=== PATIENT | female | born 1965 | race Caucasian/White ===

== ENCOUNTER → 2018-07-27 12:38 | Outpatient (POV) | payer MEDICARE, SELFPAY ==
[2018-07-27 13:02] VITALS: BP 159/87; PULSE 67; RESP 18; O2SAT 98
--- NOTE | 2018-07-27 15:00 | HMH.PMCON ---
Assessment and Plan (1) Post laminectomy syndrome Current visit: Yes Status: Acute Category: Medical Code(s): M96.1 - Postlaminectomy syndrome, not elsewhere classified (2) Degenerative joint disease (DJD) of lumbar spine Current visit: Yes Status: Acute Category: Medical Code(s): M47.816 - Spondylosis without myelopathy or radiculopathy, lumbar region (3) Lumbar radiculopathy Current visit: Yes Status: Acute Category: Medical Code(s): M54.16 - Radiculopathy, lumbar region - Assessment and plan all Dx Assessment and Plan for all problems:: Patient and I had a long discussion in regards to us taking over her pump. Discussed realistic expectations. She is currently on diazepam from a psychiatrist we discussed the risks of taking this with an intrathecal pain pump. She understands. We will start slowly increasing her and 25% increments to see if this is beneficial. I do believe she may also benefit from a flexed dose in the future. We will be removing her clonidine at her next intrathecal pain pump refill. Patient has been instructed to call the office if she has any issues. Dr. Lomeli has reviewed this note and agrees with this plan of care. This note was dictated using voice recognition software and may contain errors or omissions HPI - Data of Consult Consult date: 07/27/18 Requesting Physician: Vania Costa APRN Primary Care Provider: DARIANA Kearney - Consult Narrative Reason for consult: Back pain History of present illness: Ms. Gusman is a 52 year old female who presents today for consultation in regards to her low back pain. Patient has numbness and tingling in her left leg. Patient is interested in having our office take over her intrathecal therapy. She is been seen by Dr. Gillespie at [facility]. Patient had a Prialt pump which she developed side effects to. Patient's been switched to Dilaudid/clonidine. Patient has minimal relief with her current dose of 0.16 mg/day she rates her pain today 4 out of 10 when she is standing. Most of her pain is in her bilateral feet. Patient has had injections in the past however none since her interthecal placement. Patient has had her pump since 2017 she states all activity increases her pain while rest decreases her pain. CC: Vania Costa APRN [facility] History I have reviewed the patient's past medical history: Yes Medical History: Reports:: Hyperlipidemia, Palpitations Denies:: Diabetes Mellitus Type 1, Diabetes Mellitus Type 2 Other Medical History: Reports: Thyroid Disease (HYPOTHYROIDISM) Amputation: No Fractures: No - *Social History Smoking Status: Never smoker Alcohol Intake: never *Occupational Status:: other Housing: house Household Members: spouse *Travel in the last 8 weeks: None - Psychiatric History Expresses thoughts of harming self/others: None Suicide Plan Description: No Plan Family Hx:: Unable to obtain Review of Systems - Review of Systems ROS General: no recent weight change, no fever, no sleep disturbances Respiratory: no cough, no shortness of air, no recurring pulmonary infections Cardiovascular/Peripheral Vascular: No chest pain, No palpitations, no edema, no shortness of breath. Gastrointestinal: no incontinence, normal bowel movements reported Genitourinary: no incontinence Musculoskeletal: Back pain, leg pain Psychiatric: normal mood/ affect Neurological: [denies weakness in extremities], [denies balance issues] Objective Vital signs: Pulse Resp BP Pulse Ox 67 18 159/87 H 98 07/27/18 13:02 07/27/18 13:02 07/27/18 13:02 07/27/18 13:02 Narrative: Physical Exam General: Alert and oriented x3, no acute distress, pleasant and cooperative, [on room air] Lungs: Resps E/U, Symmetrical chest expansion, Eyes: PERRL Musculoskeletal: Flexion and extension of lumbar spine somewhat guarded secondary to pain, deep tendon reflexes normal, strength
--- NOTE | 2018-07-28 08:51 | P.CONS_ITS ---
Assessment and Plan (1) Post laminectomy syndrome Current visit: Yes Status: Acute Category: Medical Code(s): M96.1 - Postlaminectomy syndrome, not elsewhere classified (2) Degenerative joint disease (DJD) of lumbar spine Current visit: Yes Status: Acute Category: Medical Code(s): M47.816 - Spondylosis without myelopathy or radiculopathy, lumbar region (3) Lumbar radiculopathy Current visit: Yes Status: Acute Category: Medical Code(s): M54.16 - Radiculopathy, lumbar region - Assessment and plan all Dx Assessment and Plan for all problems:: Patient and I had a long discussion in regards to us taking over her pump. Discussed realistic expectations. She is currently on diazepam from a psychiatrist we discussed the risks of taking this with an intrathecal pain pump. She understands. We will start slowly increasing her and 25% increments to see if this is beneficial. I do believe she may also benefit from a flexed dose in the future. We will be removing her clonidine at her next intrathecal pain pump refill. Patient has been instructed to call the office if she has any issues. Dr. Lomeli has reviewed this note and agrees with this plan of care. This note was dictated using voice recognition software and may contain errors or omissions HPI - Data of Consult Consult date: 07/27/18 Requesting Physician: Vania Costa APRN Primary Care Provider: DARIANA Kearney - Consult Narrative Reason for consult: Back pain History of present illness: Ms. Gusman is a 52 year old female who presents today for consultation in regards to her low back pain. Patient has numbness and tingling in her left leg. Patient is interested in having our office take over her intrathecal therapy. She is been seen by Dr. Gillespie at [facility]. Patient had a Prialt pump which she developed side effects to. Patient's been switched to Dilaudid/clonidine. Patient has minimal relief with her current dose of 0.16 mg/day she rates her pain today 4 out of 10 when she is standing. Most of her pain is in her bilateral feet. Patient has had injections in the past however none since her interthecal placement. Patient has had her pump since 2017 she states all activity increases her pain while rest decreases her pain. CC: Vania Costa APRN [facility] History I have reviewed the patient's past medical history: Yes Medical History: Reports:: Hyperlipidemia, Palpitations Denies:: Diabetes Mellitus Type 1, Diabetes Mellitus Type 2 Other Medical History: Reports: Thyroid Disease (HYPOTHYROIDISM) Amputation: No Fractures: No - *Social History Smoking Status: Never smoker Alcohol Intake: never *Occupational Status:: other Housing: house Household Members: spouse *Travel in the last 8 weeks: None - Psychiatric History Expresses thoughts of harming self/others: None Suicide Plan Description: No Plan Family Hx:: Unable to obtain Review of Systems - Review of Systems ROS General: no recent weight change, no fever, no sleep disturbances Respiratory: no cough, no shortness of air, no recurring pulmonary infections Cardiovascular/Peripheral Vascular: No chest pain, No palpitations, no edema, no shortness of breath. Gastrointestinal: no incontinence, normal bowel movements reported Genitourinary: no incontinence Musculoskeletal: Back pain, leg pain Psychiatric: normal mood/ affect Neurological: [denies weakness in extremities], [denies balance issues] Objective Vital signs:
== END ==
PROVIDERS: PCP Physician Assistant; Visit Provider Clinical Nurse Specialist Family Health
DX: M96.1 Postlaminectomy syndrome, not elsewhere classified (principal); M47.816 Spondylosis without myelopathy or radiculopathy, lumbar region; M54.16 Radiculopathy, lumbar region
CPT/HCPCS: 99202

== ENCOUNTER → 2018-08-10 14:53 | Outpatient (POV) | payer MEDICARE, SELFPAY ==
--- NOTE | 2018-08-11 08:44 | P.PCN_ITS ---
- Procedure Date: 08/10/18 Time: 15:00 Anesthesiologist:: Vania Costa APRN Complications:: None Pre-procedure Diagnosis:: Degenerative disc disease lumbar spine with lumbar radiculopathy and postlaminectomy syndrome Post-procedure Diagnosis:: Same Indications for Procedure:: Patient is a pleasant 52-year-old white female who presents today for intrathecal pain pump adjustment. Patient is currently on a Dilaudid/clonidine dose of 0.21 mg a day. At her last visit she was increased 25% did well with this she denies any side effects or medication at this time. We will increase her today and reinstate her PTC dosing. Patient states most of her pain is in her back and bilateral legs. She rates her pain today a 5 out of 10. Patient is also continuing with CBD oil. Physical Exam General: Alert and oriented x3, no acute distress, pleasant and cooperative, [on room air] Lungs: Resps E/U, Symmetrical chest expansion, Eyes: PERRL Musculoskeletal: Flexion and extension of lumbar spine somewhat guarded secondary to pain, deep tendon reflexes normal, strength in upper and lower extremities [5/5], slightly antalgic gait noted Neurological: speech clear, arts and crafts instructor equal, no gross sensory deficits Procedure Details:: Informed consent was obtained and the risk and benefits of the procedure were explained to the patient. The patient was taken to the procedure room where noninvasive monitoring was placed including noninvasive blood pressure cuff and pulse oximeter. Patient's pump was interrogated and reprogrammed. The infusion rate was increased to 0.25 mg a day of Dilaudid and 50 mcg of clonidine. Her PTC was set up at 0.02 mg per activation with a lockout of 3 hours and up to 3 activations a day. The patient tolerated the procedure well. Plan and Disposition:: We will see the patient back at her next intrathecal pain pump refill and reprogram. We will fill her with Dilaudid 3 mg/mL we will take her clonidine out at this time. We will continue to make adjustments until she is optimally controlled with the intrathecal pain pump. Dr. Lomeli has reviewed this note and agrees with this plan of care. This note was dictated using voice recognition software and may contain errors or omissions
== END ==
PROVIDERS: PCP Physician Assistant; Visit Provider Clinical Nurse Specialist Family Health
DX: M51.16 Intervertebral disc disorders with radiculopathy, lumbar region (principal); M96.1 Postlaminectomy syndrome, not elsewhere classified
CPT/HCPCS: 62368

== ENCOUNTER → 2018-09-21 14:21 | Outpatient (POV) | payer MEDICARE, SELFPAY ==
--- NOTE | 2018-09-21 14:26 | XR_ITS ---
XR ankle wt bearing LT min 3V HISTORY: ITS.REASON: pain ORDERING PHYSICIAN: Vania Costa PATIENT AGE: 52 years Comparison: None FINDINGS: No fracture or dislocation. No lytic or blastic change. There is normal mineralization.. The joint spaces are well-preserved. No significant degenerative/arthritic changes. No erosive changes evident. The ankle mortise is well preserved . The talar dome has an unremarkable appearance. IMPRESSION: Negative ankle, no acute finding
--- NOTE | 2018-09-21 14:26 | XR_ITS ---
XR ankle wt bearing RT min 3V HISTORY: ITS.REASON: pain ORDERING PHYSICIAN: Vania Costa PATIENT AGE: 52 years Comparison: None FINDINGS: No fracture or dislocation. No lytic or blastic change. There is normal mineralization.. The joint spaces are well-preserved. No significant degenerative/arthritic changes. No erosive changes evident. The ankle mortise is well preserved . The talar dome has an unremarkable appearance. IMPRESSION: Negative ankle, no acute finding
--- NOTE | 2018-09-21 14:26 | XR_ITS ---
XR foot wt bearing RT 3V HISTORY: Right foot pain ITS.REASON: Pain ORDERING PHYSICIAN: Vania Costa PATIENT AGE: 52 years COMPARISON: There is a tear FINDINGS: No fracture or dislocation. No lytic or blastic change. There is normal mineralization.. The joint spaces are well-preserved. No significant degenerative/arthritic changes. No erosive changes evident. There are mild hypertrophic changes along the distal aspect of the talus dorsally. There is normal alignment. IMPRESSION: No acute finding. Mild hypertrophic changes along the dorsal aspect of the talus distally
--- NOTE | 2018-09-21 14:26 | XR_ITS ---
XR foot wt bearing LT 3V HISTORY: ITS.REASON: Pain ORDERING PHYSICIAN: Vania Costa PATIENT AGE: 52 years COMPARISON: None FINDINGS: No fracture or dislocation. No lytic or blastic change. There is normal mineralization.. The joint spaces are well-preserved. No significant degenerative/arthritic changes. No erosive changes evident. IMPRESSION: Negative, no acute finding
[2018-09-21 15:38] VITALS: BP 144/91; PULSE 81; RESP 18; O2SAT 99; BMI 33.3
--- NOTE | 2018-09-21 15:57 | P.PCN_ITS ---
- Procedure Date: 09/21/18 Time: 15:38 Anesthesiologist:: Vania Costa APRN Complications:: None Pre-procedure Diagnosis:: Degenerative disc disease lumbar spine with lumbar radiculopathy and postlaminectomy syndrome Post-procedure Diagnosis:: Same Indications for Procedure:: Patient is a pleasant 52-year-old white female who presents today for intrathecal pain pump reprogram. Patient is currently on a 0.27 dose of Dilaudid. She denies any side effects. Patient has been doing well. She is been seen by Dr. Kwon and given injections for neuroma. She has not nerve conduction study coming up. She rates her pain a 4 out of 10. Physical Exam General: Alert and oriented x3, no acute distress, pleasant and cooperative, [on room air] Lungs: Resps E/U, Symmetrical chest expansion, Eyes: PERRL Musculoskeletal: Flexion and extension of lumbar spine somewhat guarded secondary to pain, deep tendon reflexes normal, strength in upper and lower extremities [5/5], [abnormal gait noted] Neurological: speech clear, service order expediter equal, no gross sensory deficits Procedure Details:: Informed consent was obtained and the risk and benefits of the procedure were explained to the patient. The patient was taken to the procedure room where noninvasive monitoring was placed including noninvasive blood pressure cuff and pulse oximeter. Patient's pump was interrogated and reprogrammed. The infusion rate was increased to 0.4 mg a day of Dilaudid. The patient tolerated the procedure well. Plan and Disposition:: We will see the patient back in 8 weeks reassess her symptoms at that time. She is been instructed to call the office if she has any issues prior to her next appointment. Dr. Lomeli has reviewed this note and agrees with this plan of care. This note was dictated using voice recognition software and may contain errors or omissions
== END ==
PROVIDERS: Visit Provider Clinical Nurse Specialist Family Health
DX: M79.672 Pain in left foot (principal); M79.671 Pain in right foot; M25.572 Pain in left ankle and joints of left foot; M25.571 Pain in right ankle and joints of right foot
CPT/HCPCS: 62368; 73610; 73630

== ENCOUNTER → 2018-10-20 12:55 | Outpatient (POV) | payer MEDICARE, SELFPAY ==
[2018-10-20 13:20] VITALS: BP 131/87; PULSE 70; RESP 18; O2SAT 96; BMI 33.3
--- NOTE | 2018-10-20 13:58 | HMH.PMPROC ---
- Procedure Date: 10/20/18 Time: 13:58 Anesthesiologist:: Vania Costa APRN Complications:: None Pre-procedure Diagnosis:: Degenerative disc disease lumbar spine with lumbar radiculopathy and postlaminectomy syndrome Post-procedure Diagnosis:: Same Indications for Procedure:: She is a pleasant 52-year-old white female who presents today for intrathecal pain pump reprogram. She is currently on a dose of 0.4 mg of Dilaudid she denies any side effects. She is overall doing well however she has some increased pain she rates her pain a 6 out of 10. She is having more burning than usual and her groin. Physical Exam General: Alert and oriented x3, no acute distress, pleasant and cooperative, [on room air] Lungs: Resps E/U, Symmetrical chest expansion, Eyes: PERRL Musculoskeletal: Flexion and extension of lumbar spine somewhat guarded secondary to pain, deep tendon reflexes normal, strength in upper and lower extremities [5/5], slightly antalgic gait noted Neurological: speech clear, chief passenger ship steward/stewardess equal, no gross sensory deficits Procedure Details:: Informed consent was obtained and the risk and benefits of the procedure were explained to the patient. The patient was taken to the procedure room where noninvasive monitoring was placed including noninvasive blood pressure cuff and pulse oximeter. Patient's pump was interrogated and reprogrammed. The infusion rate was increased to .6 mg of dilaudid a day. The patient tolerated the procedure well. Plan and Disposition:: I will see the patient back in three weeks to reassess her. Patient is been instructed to call the office if she has any issues prior to her next appointment. She will also be getting a nerve conduction study done we may add bupivacaine to her intrathecal infusion. Dr. Lomeli has reviewed this note and agrees with this plan of care. This note was dictated using voice recognition software and may contain errors or omissions
--- NOTE | 2018-10-20 14:04 | P.PCN_ITS ---
- Procedure Date: 10/20/18 Time: 13:58 Anesthesiologist:: Vania Costa APRN Complications:: None Pre-procedure Diagnosis:: Degenerative disc disease lumbar spine with lumbar radiculopathy and postlaminectomy syndrome Post-procedure Diagnosis:: Same Indications for Procedure:: She is a pleasant 52-year-old white female who presents today for intrathecal pain pump reprogram. She is currently on a dose of 0.4 mg of Dilaudid she denies any side effects. She is overall doing well however she has some increased pain she rates her pain a 6 out of 10. She is having more burning gena n usual and her groin. Physical Exam General: Alert and oriented x3, no acute distress, pleasant and cooperative, [on room air] Lungs: Resps E/U, Symmetrical chest expansion, Eyes: PERRL Musculoskeletal: Flexion and extension of lumbar spine somewhat guarded secondary to pain, deep tendon reflexes normal, strength in upper and lower extremities [5/5], slightly antalgic gait noted Neurological: speech clear, screening technician equal, no gross sensory deficits Procedure Details:: Informed consent was obtained and the risk and benefits of the procedure were explained to the patient. The patient was taken to the procedure room where noninvasive monitoring was placed including noninvasive blood pressure cuff and pulse oximeter. Patient's pump was interrogated and reprogrammed. The infusion rate was increased to .6 mg of dilaudid a day. The patient tolerated the procedure well. Plan and Disposition:: I will see the patient back in three weeks to reassess her. Patient is been instructed to call the office if she has any issues prior to her next appointment. She will also be getting a nerve conduction study done we may add bupivacaine to her intrathecal infusion. Dr. Lomeli has reviewed this note and agrees with this plan of care. This note was dictated using voice recognition software and may contain errors or omissions
== END ==
PROVIDERS: Visit Provider Clinical Nurse Specialist Family Health
DX: M51.16 Intervertebral disc disorders with radiculopathy, lumbar region (principal); M96.1 Postlaminectomy syndrome, not elsewhere classified
CPT/HCPCS: 62368

== ENCOUNTER → 2018-11-09 12:47 | Outpatient (POV) | payer MEDICARE, SELFPAY | PROVIDERS: Visit Provider Specialist | DX: R20.2 Paresthesia of skin (principal) | CPT/HCPCS: 95886; 95908 ==

== ENCOUNTER → 2018-11-09 14:59 | Outpatient (POV) | payer MEDICARE, SELFPAY ==
[2018-11-09 15:13] VITALS: BP 137/98; PULSE 75; RESP 18; O2SAT 98; BMI 34.1
--- NOTE | 2018-11-09 15:31 | HMH.PMPROC ---
- Procedure Date: 11/09/18 Time: 15:31 Anesthesiologist:: Vania Costa APRN Complications:: None Pre-procedure Diagnosis:: Degenerative disc disease lumbar spine with lumbar radiculopathy and postlaminectomy syndrome Post-procedure Diagnosis:: Same Indications for Procedure:: Patient is a pleasant 53-year-old white female who presents today for intrathecal pain pump reprogram. She is currently on intrathecal Dilaudid dose of 0.6 mg she denies side effects she is doing better she states her baseline pain is 4 out of 10 and she does not have extreme highs. Overall patient did well with her increased last time. She is a little sore today rating her pain a 6 out of 10 due to her recently having a nerve conduction study test. Nerve conduction study test came back appropriate. Patient is also been following up with podiatry. Physical Exam General: Alert and oriented x3, no acute distress, pleasant and cooperative, [on room air] Lungs: Resps E/U, Symmetrical chest expansion, Eyes: PERRL Musculoskeletal: Flexion and extension of lumbar spine somewhat guarded secondary to pain, deep tendon reflexes normal, strength in upper and lower extremities [5/5], antalgic gait noted Neurological: speech clear, manager field investigations equal, no gross sensory deficits Procedure Details:: Informed consent was obtained and the risk and benefits of the procedure were explained to the patient. The patient was taken to the procedure room where noninvasive monitoring was placed including noninvasive blood pressure cuff and pulse oximeter. Patient's pump was interrogated and reprogrammed. The infusion rate was increased to 0.87 mg a day of Dilaudid. The patient tolerated the procedure well. Plan and Disposition:: I will follow-up with the patient at her next intrathecal pain pump refill and reprogram we will change her Dilaudid to 5 mg/mL and bupivacaine 1 mg/mL. He has been instructed to call the office if she has any issues prior to her next appointment. Dr. Lomeli has reviewed this note and agrees with this plan of care. This note was dictated using voice recognition software and may contain errors or omissions
== END ==
PROVIDERS: PCP Physician Assistant; Visit Provider Clinical Nurse Specialist Family Health
DX: M51.16 Intervertebral disc disorders with radiculopathy, lumbar region (principal); M96.1 Postlaminectomy syndrome, not elsewhere classified
CPT/HCPCS: 62368; 95886; 95908

== ENCOUNTER → 2018-12-07 14:01 | Outpatient (POV) | payer MEDICARE, SELFPAY ==
--- NOTE | 2018-12-07 14:13 | HMH.PMPROC ---
- Procedure Date: 12/07/18 Time: 14:14 Anesthesiologist:: Oriana Parmar APRN Complications:: None Pre-procedure Diagnosis:: Degenerative disc disease lumbar spine with lumbar radiculopathy, postlaminectomy syndrome Post-procedure Diagnosis:: Same Indications for Procedure:: Patient is a pleasant 53-year-old white female who presents today for intrathecal pain pump adjustment. The patient reports that her PTC control has not been working recently, increasing her pain. She was recently seen by [employer] sales representative who did check her PTC control. She says that it worked for a short time and is now messed up again. She rates her pain a 5 out of 10 today. She also recently had bupivacaine added to her intrathecal pain pump medication and reports that she has had no side effects from this. She does complain of tingling to her bilateral legs and feet. Physical exam General: Alert and oriented x3, no acute distress, pleasant and cooperative, [on room air] Lungs: Respirations even and unlabored, symmetrical chest expansion Eyes: PERRL Musculoskeletal: Flexion and extension of lumbar spine somewhat guarded secondary to pain, deep tendon reflexes normal, strength in upper and lower extremities [5/5], [abnormal gait noted] Neurological: Speech clear, lead material handler equal, no gross sensory deficit Procedure Details:: Informed consent was obtained and the risk and benefits of the procedure were explained to the patient. Patient was taken to the procedure room where noninvasive monitoring was placed including noninvasive blood pressure cuff and pulse oximeter. Patient's pump was interrogated and was reprogrammed to [1.25 mg per day of Dilaudid]. The patient's PTC was also increased to 0.125 mg. the patient tolerated the procedure well with no complications. The patient will see the [employer] sales representative today to assess her PTC control. Plan and Disposition:: We will see the patient back call the office if she has any concerns prior to her next appointment. Dr. Lomeli has reviewed this note and agrees with this plan of care. This note was dictated using voice recognition software and make contain errors or omissions.
--- NOTE | 2018-12-07 14:24 | P.PCN_ITS ---
- Procedure Date: 12/07/18 Time: 14:14 Anesthesiologist:: Oriana Parmar APRN Complications:: None Pre-procedure Diagnosis:: Degenerative disc disease lumbar spine with lumbar radiculopathy, postlaminectomy syndrome Post-procedure Diagnosis:: Same Indications for Procedure:: Patient is a pleasant 53-year-old white female who presents today for intrathecal pain pump adjustment. The patient reports that her PTC control has not been working recently, increasing her pain. She was recently seen by [employer] medical device sales representative who did check her PTC control. She says that it worked for a short time and is now messed up again. She rates her pain a 5 out of 10 today. She also recently had bupivacaine added to her intrathecal pain pump medication and reports that she has had no side effects from this. She does complain of tingling to her bilateral legs and feet. Physical exam General: Alert and oriented x3, no acute distress, pleasant and cooperative, [on room air] Lungs: Respirations even and unlabored, symmetrical chest expansion Eyes: PERRL Musculoskeletal: Flexion and extension of lumbar spine somewhat guarded secondary to pain, deep tendon reflexes normal, strength in upper and lower extremities [5/5], [abnormal gait noted] Neurological: Speech clear, in store marketing representative equal, no gross sensory deficit Procedure Details:: Informed consent was obtained and the risk and benefits of the procedure were explained to the patient. Patient was taken to the procedure room where noninvasive monitoring was placed including noninvasive blood pressure cuff and pulse oximeter. Patient's pump was interrogated and was reprogrammed to [1.25 mg per day of Dilaudid]. The patient's PTC was also increased to 0.125 mg. the patient tolerated the procedure well with no complications. The patient will see the [employer] medical device sales representative today to assess her PTC control. Plan and Disposition:: We will see the patient back call the office if she has any concerns prior to her next appointment. Dr. Lomeli has reviewed this note and agrees with this plan of care. This note was dictated using voice recognition software and make contain errors or omissions.
[2018-12-07 14:28] VITALS: BP 158/88; PULSE 74; RESP 18; O2SAT 97; BMI 34.9
== END ==
PROVIDERS: Visit Provider Clinical Nurse Specialist Family Health
DX: M51.16 Intervertebral disc disorders with radiculopathy, lumbar region (principal); M96.1 Postlaminectomy syndrome, not elsewhere classified
CPT/HCPCS: 62368

== ENCOUNTER → 2019-01-12 14:34 | Outpatient (CLI) | payer MEDICARE, SELFPAY ==
[2019-01-12 17:03] LABS: Amphetamine/Metha Screen,Urine Negative ng/mL (<1000); Barbiturates Screen,Urine Negative ng/mL (<200); Benzodiazepines Screen,Urine Positive ng/mL (<200); Cannabinoid Screen,Urine Negative ng/mL (<50); Cocaine Screen,Urine Negative ng/mL (<300); Methadone Screen,Urine Negative ng/mL (<300); Opiate Screen,Urine Negative ng/mL (<300); Phencyclidine Screen,Urine Negative ng/mL (<25)
[2019-01-18 10:34] LABS: Opiates Negative (Cutoff=100)
== END ==
PROVIDERS: Visit Provider Anesthesiology
DX: Z79.899 Other long term (current) drug therapy (principal)
CPT/HCPCS: 80305; 80361; 80365; G0480

== ENCOUNTER → 2019-05-17 13:37 | Outpatient (POV) | payer MEDICARE, SELFPAY ==
[2019-05-17 13:59] VITALS: BP 125/80; PULSE 83; RESP 18; O2SAT 99; BMI 36.6
--- NOTE | 2019-05-18 08:44 | P.PCN_ITS ---
- Procedure Date: 05/17/19 Time: 13:20 Anesthesiologist:: Vania Costa APRN Complications:: None Pre-procedure Diagnosis:: Degenerative disc disease lumbar spine with lumbar radiculopathy postlaminectomy syndrome lumbar spine Post-procedure Diagnosis:: Same Indications for Procedure:: Patient is a very pleasant 53-year-old white female who presents today for intrathecal pain pump reprogram. Patient was doing well until about 2 weeks ago she started having increased pain. Patient is in obvious discomfort today. She rates her pain today a 10 out of 10 mostly burning in her feet. Patient's been getting bupivacaine added to her pump which has been helpful for her in the past. Hill reviewed and appropriate. Patient did have a back spasm in which she went to [facility] emergency room she had a CT scan along with a short-term supply of Percocet. Those symptoms had resolved. Patient was given a one-time bolus of 0.5 mg of Dilaudid states she felt much better her pain score came down to a 6. We will increase her today. She denies side effects to her medications. Physical Exam General: Alert and oriented x3, no acute distress, pleasant and cooperative, [on room air] Lungs: Resps E/U, Symmetrical chest expansion, Eyes: PERRL Musculoskeletal: Flexion and extension of lumbar spine somewhat guarded secondary to pain, deep tendon reflexes normal, strength in upper and lower extremities [5/5], [abnormal gait noted] Neurological: speech clear, rubbish collection supervisor equal, no gross sensory deficits Procedure Details:: Informed consent was obtained and the risk and benefits of the procedure were explained to the patient. The patient was taken to the procedure room where noninvasive monitoring was placed including noninvasive blood pressure cuff and pulse oximeter. Patient's pump was interrogated and reprogrammed. The infusion rate was increased to 2 mg/day and her PTC increased to 0.2 mg per activation. The patient tolerated the procedure well. Plan and Disposition:: I will see the patient back at her next intrathecal pain pump refill and reprogram we will increase her bupivacaine at that time she is been instructed to call the office if she has any issues prior to her next appointment. Dr. Lomeli has reviewed this note and agrees with this plan of care. This note was dictated using voice recognition software and may contain errors or omissions
== END ==
PROVIDERS: PCP Internal Medicine Medical Oncology; Visit Provider Clinical Nurse Specialist Family Health
DX: M51.16 Intervertebral disc disorders with radiculopathy, lumbar region (principal); M96.1 Postlaminectomy syndrome, not elsewhere classified
CPT/HCPCS: 62368

== ENCOUNTER → 2019-07-08 10:59 | Outpatient (POV) | payer MEDICARE, SELFPAY ==
[2019-07-08 11:26] VITALS: BP 122/75; PULSE 74; RESP 18; O2SAT 98; BMI 36.6
--- NOTE | 2019-07-08 12:12 | [facility]H.PMPROC ---
- Procedure Date: 07/08/19 Time: 12:13 Anesthesiologist:: Oriana Parmar APRN Complications:: None Pre-procedure Diagnosis:: Degenerative disc disease lumbar spine with lumbar radiculopathy Post-procedure Diagnosis:: Same Indications for Procedure:: Patient is a pleasant 53-year-old white female who presents today for follow-up after intrathecal pain pump system replacement. She is being treated for pain secondary to degenerative disc disease lumbar spine with lumbar radiculopathy symptoms. She currently has a Dilaudid/bupivacaine intrathecal pain pump in place. Patient previously had the pump placed in her abdomen. During the change out her pump was placed in her right lower back area. Patient is here today to have her bring the wound VAC removed. She is also complaining of increased pain. She was decreased in her dose during the change out to prevent any type of oversedation. Patient rates her pain a 9 out of 10 today. She would like an increase in her medication. Patient's incision is well approximated with no drainage, edema, or redness noted to the site. Her sutures are well intact. We did remove the Tracy wound VAC. We will increase her today to see if she gets relief. She is currently on a dose of Dilaudid/bupivacaine at 0.5 mg daily with a PTM device device set up at 0.1 mg 6 times a day Physical exam General: Alert and oriented x3, no acute distress, pleasant and cooperative, [on room air] Lungs: Respirations even and unlabored, symmetrical chest expansion Eyes: PERRL Musculoskeletal: Flexion and extension of lumbar spine somewhat guarded secondary to pain, deep tendon reflexes normal, strength in upper and lower extremities [5/5], [abnormal gait noted] Neurological: Speech clear, technology and engineering teacher equal, no gross sensory deficit Procedure Details:: Informed consent was obtained and the risk and benefits of the procedure were explained to the patient. Patient was taken to the procedure room where noninvasive monitoring was placed including noninvasive blood pressure cuff and pulse oximeter. Patient's pump was interrogated and was reprogrammed to Dilaudid/bupivacaine at 0.625 mg/day. Her PTM device was increased to 0.15 mg up to 6 times daily. The patient tolerated the procedure well with no complications. Plan and Disposition:: Patient's incision looks good without any signs or symptoms of infection. We did increase her today. We will see if she gets relief with her new dose. We will plan to see the patient back in the clinic in 2 weeks to reassess her symptoms. The patient's Hill #[id number] has been reviewed and is appropriate. Patient's morphine equivalent is 15. Patient's been instructed to contact the clinic if she has any concerns before next appointment. Dr. Lomeli has reviewed this note and agrees with this plan of care. This note was dictated using voice recognition software and make contain errors or omissions.
== END ==
PROVIDERS: Visit Provider Clinical Nurse Specialist Family Health
DX: M51.16 Intervertebral disc disorders with radiculopathy, lumbar region (principal); Z09 Encounter for follow-up examination after completed treatment for conditions other than malignant neoplasm
CPT/HCPCS: 62368

== ENCOUNTER → 2019-07-27 12:43 | Outpatient (POV) | payer MEDICARE, SELFPAY ==
[2019-07-27 12:49] VITALS: BP 102/73; PULSE 69; RESP 18; O2SAT 97; BMI 36.6
--- NOTE | 2019-07-27 15:14 | [facility]H.PMPROC ---
- Procedure Date: 07/27/19 Time: 15:14 Anesthesiologist:: Vania Costa APRN Complications:: None Pre-procedure Diagnosis:: Degenerative disc disease lumbar spine lumbar radiculopathy along with postlaminectomy syndrome Post-procedure Diagnosis:: Same Indications for Procedure:: Patient is a pleasant 53-year-old white female who presents today for intrathecal pain pump adjustment. Patient is getting relief in her back and pelvis however she is doing worse on her flex dosing. We will switch her back to constant dose today. She still having bilateral tingling in her feet. We had a long discussion in regards to potential stimulator trial she has tried a [employer] and a DRG stimulator in the past and did not get enough relief from it. We did discuss potentially high-frequency stimulator I do believe that may help her something such as nephro. We also discussed light therapy. Patient is going to move forward with this. Patient is currently on Dilaudid and bupivacaine we will switch her back to constant flow. Physical Exam General: Alert and oriented x3, no acute distress, pleasant and cooperative, [on room air] Lungs: Resps E/U, Symmetrical chest expansion, Eyes: PERRL Musculoskeletal: Flexion and extension of lumbar spine somewhat guarded secondary to pain, deep tendon reflexes normal, strength in upper and lower extremities [5/5], [abnormal gait noted] Neurological: speech clear, customs consultant equal, no gross sensory deficits Procedure Details:: Informed consent was obtained and the risk and benefits of the procedure were explained to the patient. The patient was taken to the procedure room where noninvasive monitoring was placed including noninvasive blood pressure cuff and pulse oximeter. Patient's pump was interrogated and reprogrammed. The infusion rate was changed to a constant rate of 2.1 mg/day and up to 8 boluses if needed.. The patient tolerated the procedure well. Plan and Disposition:: I will see the patient back 2 weeks reassess her symptoms at that time we will refer her for light therapy for neuropathic pain. Patient's been instructed to call the office if she has any issues prior to her next appointment. Dr. Lomeli has reviewed this note and agrees with this plan of care. This note was dictated using voice recognition software and may contain errors or omissions
== END ==
PROVIDERS: Visit Provider Clinical Nurse Specialist Family Health
DX: M51.16 Intervertebral disc disorders with radiculopathy, lumbar region (principal); M96.1 Postlaminectomy syndrome, not elsewhere classified
CPT/HCPCS: 62368; 99212

== ENCOUNTER 2019-09-20 14:31 | Day surgery (SDC) | payer MEDICARE, SELFPAY ==
[2019-09-20 14:41] VITALS: BP 132/85; BP 133/87; BP 135/85; PULSE 84; PULSE 88; RESP 18; TEMP 36.9; O2SAT 98; BMI 35.7
--- NOTE | 2019-09-20 15:16 | P.PCN_ITS ---
- Procedure Date: 09/20/19 Time: 15:21 Anesthesiologist:: Vania Costa APRN Complications:: None Pre-procedure Diagnosis:: Degenerative disc disease lumbar spine with lumbar radiculopathy and postlaminectomy syndrome Post-procedure Diagnosis:: Same Indications for Procedure:: Patient is a pleasant 53-year-old white female who presents today for intrathecal pain pump refill and reprogram. She is having quite a bit of pain today. She is on a Dilaudid bupivacaine infusion of 3.2 mg/day. Hill reviewed and appropriate. We did discuss ketamine infusions. I do believe it may benefit her. We will be increasing her concentration today. We will also refill her compounding cream. She rates her pain an 8 out of 10 mostly in her lower back and her feet. Physical Exam General: Alert and oriented x3, no acute distress, pleasant and cooperative, [on room air] Lungs: Resps E/U, Symmetrical chest expansion, Eyes: PERRL Musculoskeletal: Flexion and extension of lumbar spine somewhat guarded secondary to pain, deep tendon reflexes normal, strength in upper and lower extremities [5/5], antalgic gait noted Neurological: speech clear, epoxy fabrication supervisor equal, no gross sensory deficits Procedure Details:: Informed consent was obtained and the risk and benefits of the procedure were explained to the patient. The patient was taken to the procedure room where noninvasive monitoring was placed including noninvasive blood pressure cuff and pulse oximeter. Patient's pump was interrogated. The area over the pump was cleansed with chlorhexidine as a cleansing solution. In sterile fashion the pump was accessed with a 22-gauge needle. Approximately 10 mL's were removed of the pump solution and discarded appropriately. The pump was then refilled with 20 mL's of Dilaudid 20 mg/mL and bupivacaine 15 mg/mL. The needle was withdrawn and a bandage was placed over the puncture site. The infusion rate was reprogrammed to 4 mg/day. The patient tolerated the procedure well. Plan and Disposition:: We will see the patient back at her next intrathecal pain pump refill and reprogram she we specifically discussed risk factors for Covid-19 including age, heart or lung disease, diabetes, immunosuppression and travel. We also discussed that NSAIDs may worsen Covid-19 infection symptoms and that they should not be used to treat Covid-19 symptoms. Patient was also informed that corticosteroids in any form oral or injectable will decrease immune response and may increase risk of Covid-[address] Lomeli has reviewed this patient's chart and this note and agrees with plan of care. Patient has been instructed to call the office if they have any issues prior to the next appointment.
[2019-09-20 16:19] VITALS: BP 132/78; PULSE 85; RESP 18; O2SAT 99
== END 2019-09-20 15:30 | disposition home or self-care (01) ==
LOC: SC.PAINP 14:32
PROVIDERS: Visit Provider Clinical Nurse Specialist Family Health
DX: M51.16 Intervertebral disc disorders with radiculopathy, lumbar region (principal); M96.1 Postlaminectomy syndrome, not elsewhere classified; Z88.0 Allergy status to penicillin
CPT/HCPCS: 62370

== ENCOUNTER 2019-11-16 13:02 | Day surgery (SDC) | payer MEDICARE, SELFPAY ==
[2019-11-16 13:24] VITALS: BP 118/77; PULSE 57; RESP 18; O2SAT 96; BMI 36.6
[2019-11-16 13:52] VITALS: BP 127/78; PULSE 89; RESP 18; TEMP 36.6; O2SAT 98
[2019-11-16 13:54] VITALS: BP 130/78; PULSE 89; RESP 18; O2SAT 98
--- NOTE | 2019-11-16 14:07 | P.PCN_ITS ---
- Procedure Date: 11/16/19 Time: 14:07 Anesthesiologist:: Vania Costa APRN Complications:: None Pre-procedure Diagnosis:: Degenerative disc disease lumbar spine with lumbar radiculopathy and postlaminectomy syndrome Post-procedure Diagnosis:: Same Indications for Procedure:: Patient is a very pleasant 54-year-old white female presents today for intrathecal pain pump refill and reprogram along with bilateral SI joint injections. She is currently on a Dilaudid/bupivacaine infusion going at 4 mg/day. She has bilateral SI joint pain as well. She rates her pain an 8 mostly in her low back and feet. She has a positive Molly test SI joint compression test and Jose's test bilaterally. We will move forward with bilateral SI joint injections today. Physical Exam General: Alert and oriented x3, no acute distress, pleasant and cooperative, [on room air] Lungs: Resps E/U, Symmetrical chest expansion, Eyes: PERRL Musculoskeletal: Flexion and extension of lumbar spine somewhat guarded secondary to pain, deep tendon reflexes normal, strength in upper and lower extremities [5/5], [abnormal gait noted] Neurological: speech clear, streetcar dispatcher equal, no gross sensory deficits Procedure Details:: Informed consent was obtained and the risk and benefits of the procedure were explained to the patient. The patient was taken to the procedure room where noninvasive monitoring was placed including noninvasive blood pressure cuff and pulse oximeter. Patient's pump was interrogated. The area over the pump was cleansed with chlorhexidine as a cleansing solution. In sterile fashion the pump was accessed with a 22-gauge needle. Approximately 4.5 mL's were removed of the pump solution and discarded appropriately. The pump was then refilled wi th 20 mL's of Dilaudid 20 mg/mL and bupivacaine 15 mg/mL. The needle was withdrawn and a bandage was placed over the puncture site. The infusion rate was reprogrammed to continue at 4 mg/day. The patient tolerated the procedure well. We then moved onto her bilateral SI joint injections. Informed consent was obtained and the risks and benefits of the procedure were explained to the patient. Patient was taken to the procedure room. Patient was placed prone on the procedure table. The [right] hip was prepped using ChloraPrep as a cleansing solution. The skin and subcutaneous tissues were a nesthetized using lidocaine. Using fluoroscopic guidance I placed a 22-gauge spinal needle into the inferior aspect of the [right] SI joint. After this I injected 5 mL bupivacaine 0.25% and Depo-Medrol 40 mg into the [right] SI joint. This was then repeated on the left side. the patient tolerated the procedure well with no complication. Plan and Disposition:: See the patient back at her next intrathecal pain pump refill and reprogram she has been instructed to call the office if she has any issues prior to her next appointment. Dr. Lomeli has reviewed this note and agrees with this plan of care. This note was dictated using voice recognition software and may contain errors or omissions
[2019-11-16 14:22] VITALS: BP 128/78; PULSE 62; RESP 18; O2SAT 96
== END 2019-11-16 14:24 | disposition home or self-care (01) ==
LOC: SC.PAINP 13:04
PROVIDERS: Visit Provider Clinical Nurse Specialist Family Health
DX: M51.16 Intervertebral disc disorders with radiculopathy, lumbar region (principal); M96.1 Postlaminectomy syndrome, not elsewhere classified; M46.1 Sacroiliitis, not elsewhere classified; Z88.1 Allergy status to other antibiotic agents; Z88.0 Allergy status to penicillin; D64.9 Anemia, unspecified; E03.9 Hypothyroidism, unspecified; F41.9 Anxiety disorder, unspecified; F32.9 Major depressive disorder, single episode, unspecified
CPT/HCPCS: 27096; 95991; G0260; J1030; Q9966

== ENCOUNTER 2020-01-03 13:05 | Day surgery (SDC) | payer MEDICARE, SELFPAY ==
[2020-01-03 13:15] VITALS: BP 113/71; PULSE 91; RESP 18; TEMP 35.9; O2SAT 96; BMI 42.7
[2020-01-03 13:32] VITALS: BP 142/88; PULSE 85; RESP 18; TEMP 36.8; O2SAT 98
[2020-01-03 13:43] VITALS: BP 132/88; PULSE 85; RESP 18; O2SAT 99
--- NOTE | 2020-01-03 13:55 | [facility]H.PMPROC ---
- Procedure Date: 01/03/20 Time: 13:55 Anesthesiologist:: Oriana Parmar APRN Complications:: None Pre-procedure Diagnosis:: Degenerative disc disease lumbar spine with lumbar radiculopathy symptoms Post-procedure Diagnosis:: Same Indications for Procedure:: Patient is a 54-year-old white female who presents today for intrathecal pain pump refill and reprogram. She has been treated for low back pain with lumbar radiculopathy symptoms. She is currently on Dilaudid/bupivacaine intrathecal therapy at 4 mg/day. She denies any side effects to the medications. She is saying that she is using her boluses faithfully 4 times daily. She would like an increase in the number of time she can use her boluses. She also needs a refill on her Zanaflex. Patient does rate her pain a 6 out of 10 today. Physical exam General: Alert and oriented x3, no acute distress, pleasant and cooperative, [on room air] Lungs: Respirations even and unlabored, symmetrical chest expansion Eyes: PERRL Musculoskeletal: Flexion and extension of lumbar spine somewhat guarded secondary to pain, deep tendon reflexes normal, strength in upper and lower extremities [5/5], [abnormal gait noted] Neurological: Speech clear, acute dialysis registered nurse equal, no gross sensory deficit Procedure Details:: Informed consent was obtained and the risk and benefits of the procedure were explained to the patient. The patient was taken to the procedure room where noninvasive monitoring was placed including noninvasive blood pressure cuff and pulse oximeter. Patient's pump was interrogated. The area over the pump was cleansed with chlorhexidine as a cleansing solution. In sterile fashion the pump was accessed with a 22-gauge needle. Approximately 6 Mls of the pump solution was removed and discarded appropriately. The pump was then refilled with 20 mL's of Dilaudid 2 mg per male and bupivacaine 15 mg/mL. The needle was withdrawn and a bandage was placed over the puncture site. The infusion rate was reprogrammed at Dilaudid/bupivacaine 4 mg per ml. PTC was increased to 0.45 mg up to 6 times daily. The patient tolerated well with no complication. Plan and Disposition:: We will see her back at her next intrathecal pain pump refill and reprogram. She has been instructed to contact the clinic if she has any concerns before her next appointment. The patient and I specifically discussed risk factors for COVID19. These risks include, but are not limited to age greater than 60, heart or lung disease, diabetes, immunosuppression, and travel. We also discussed NSAIDs may worsen COVID19 infection or symptoms. Patient should not use NSAIDs to treat COVID19 signs or symptoms. Patient was also informed that any type of corticosteroid of any form (oral or injection) will decrease the patient's immune system response and may increase the likelihood of COVID19 infection [address] symptoms[address] Lomeli has reviewed this note and agrees with this plan of care. This note was dictated using voice recognition software and make contain errors or omissions.
[2020-01-03 14:12] VITALS: BP 126/76; PULSE 89; RESP 18; O2SAT 96
== END 2020-01-03 14:14 | disposition home or self-care (01) ==
LOC: SC.PAINP 13:07
PROVIDERS: Visit Provider Clinical Nurse Specialist Family Health
DX: M51.16 Intervertebral disc disorders with radiculopathy, lumbar region (principal); R00.2 Palpitations; F41.9 Anxiety disorder, unspecified; F32.9 Major depressive disorder, single episode, unspecified; M96.1 Postlaminectomy syndrome, not elsewhere classified; Z79.899 Other long term (current) drug therapy
CPT/HCPCS: 62370

== ENCOUNTER 2020-02-07 14:21 | Day surgery (SDC) | payer MEDICARE, SELFPAY ==
[2020-02-07 14:31] VITALS: BP 125/95; BP 130/74; PULSE 91; PULSE 93; RESP 18; O2SAT 96; O2SAT 98
[2020-02-07 14:35] VITALS: BP 128/82; PULSE 90; RESP 18; TEMP 36.5; O2SAT 98; BMI 35.2
--- NOTE | 2020-02-07 15:04 | [facility].PMPROC ---
- Procedure Date: 02/07/20 Time: 15:04 Anesthesiologist:: Vania Costa APRN Complications:: None Pre-procedure Diagnosis:: Degenerative disc disease lumbar spine lumbar radiculopathy symptoms, postlaminectomy syndrome, neuropathy Post-procedure Diagnosis:: Same Indications for Procedure:: Patient is a pleasant 54-year-old white female presents today for intrathecal pain pump refill and reprogram. She is being treated for low back pain secondary to postlaminectomy syndrome. She has significant neuropathy in her bilateral feet.Patient utilizes a TENS unit externally to help with this. She has color changes in her feet. Patient rates her burning numbness and tingling an 8 out of 10. Patient's intrathecal therapy manages her back and radicular symptoms however her not neuropathy secondary to postlaminectomy syndrome has significantly increased. Patient and I discussed neurostimulator. I do believe this would benefit her. Physical Exam General: Alert and oriented x3, no acute distress, pleasant and cooperative, [on room air] Lungs: Resps E/U, Symmetrical chest expansion, Eyes: PERRL Musculoskeletal: Flexion and extension of lumbar spine somewhat guarded secondary to pain, deep tendon reflexes normal, strength in upper and lower extremities [5/5], [abnormal gait noted] Neurological: speech clear, aircraft mechanic structures equal, decreased sensation bilateral feet Procedure Details:: Informed consent was obtained and the risk and benefits of the procedure were explained to the patient. The patient was taken to the procedure room where noninvasive monitoring was placed including noninvasive blood pressure cuff and pulse oximeter. Patient's pump was interrogated. The area over the pump was cleansed with chlorhexidine as a cleansing solution. In sterile fashion the pump was accessed with a 22-gauge needle. Approximately 8 mL's were removed of the pump solution and discarded appropriately. The pump was then refilled with 20 mL's of Dilaudid 20 mg/mL and bupivacaine 15 mg/mL. The needle was withdrawn and a bandage was placed over the puncture site. The infusion rate was reprogrammed to continue at 4 mg/day.. The patient tolerated the procedure well. Plan and Disposition:: We will see if the patient will move forward with a neurostimulator trial with [employer]. Patient and I had a long discussion in regard to this. She is not on any anticoagulation therapy. I will follow-up with her after her trial reassess her symptoms at that time she has been instructed to call the office if she has any issues prior to next appointment. Dr. Lomeli has reviewed this note and agrees with this plan of care. This note was dictated using voice recognition software and may contain errors or omissions
[2020-02-07 15:09] VITALS: BP 119/80; PULSE 85; RESP 18; O2SAT 98
== END 2020-02-07 15:11 | disposition home or self-care (01) ==
LOC: SC.PAINP 14:23
PROVIDERS: Visit Provider Clinical Nurse Specialist Family Health
DX: M51.16 Intervertebral disc disorders with radiculopathy, lumbar region (principal); M96.1 Postlaminectomy syndrome, not elsewhere classified; G62.9 Polyneuropathy, unspecified; E78.5 Hyperlipidemia, unspecified; K21.9 Gastro-esophageal reflux disease without esophagitis; E03.9 Hypothyroidism, unspecified; Z79.899 Other long term (current) drug therapy
CPT/HCPCS: 95991

== ENCOUNTER 2020-03-20 14:05 | Day surgery (SDC) | payer MEDICARE, SELFPAY ==
[2020-03-20 14:07] VITALS: BP 103/69; PULSE 72; RESP 18; TEMP 36.6; O2SAT 98; BMI 34.4
[2020-03-20 14:25] VITALS: BP 142/78; PULSE 85; RESP 18; O2SAT 98
[2020-03-20 14:33] VITALS: BP 138/89; PULSE 85; RESP 18; O2SAT 98
--- NOTE | 2020-03-20 14:37 | HMH.PMPROC ---
- Procedure Date: 03/20/20 Time: 14:37 Anesthesiologist:: Vania Costa APRN Complications:: None Pre-procedure Diagnosis:: Degenerative disc disease lumbar spine lumbar radiculopathy symptoms postlaminectomy syndrome and neuropathy Post-procedure Diagnosis:: Same Indications for Procedure:: Patient is a very pleasant 54-year-old white female who presents today for ankle pain pump refill and reprogram she is being treated for low back pain secondary to postlaminectomy syndrome. She has significant neuropathy in her bilateral feet. Patient utilizes a TENS unit externally to help with this. She has color changes in her feet along with burning numbness and tingling she rates her pain today an 8 out of 10. She is on intrathecal therapy which manages her back however her neuropathy and radicular symptoms are not managed with this. Patient has been discussed with a neurostimulator. I do believe this would benefit her and give her a better quality of life. Physical Exam General: Alert and oriented x3, no acute distress, pleasant and cooperative, [on room air] Lungs: Resps E/U, Symmetrical chest expansion, Eyes: PERRL Musculoskeletal: Flexion and extension of lumbar spine somewhat guarded secondary to pain, deep tendon reflexes normal, strength in upper and lower extremities [5/5], [abnormal gait noted] Neurological: speech clear, security system technician equal, no gross sensory deficits Procedure Details:: Informed consent was obtained and the risk and benefits of the procedure were explained to the patient. The patient was taken to the procedure room where noninvasive monitoring was placed including noninvasive blood pressure cuff and pulse oximeter. Patient's pump was interrogated. The area over the pump was cleansed with chlorhexidine as a cleansing solution. In sterile fashion the pump was accessed with a 22-gauge needle. Approximately 5.5 mL's were removed of the pump solution and discarded appropriately. The pump was then refilled with 20 mL's of Dilaudid 20 mg/mL/bupivacaine 15 mg/mL. The needle was withdrawn and a bandage was placed over the puncture site. The infusion rate was reprogrammed to continue at 4 mg a day and her boluses were raised to 0.5 mg per activation. The patient tolerated the procedure well. Plan and Disposition:: We will try to continue to move forward with a neurostimulator trial with [employer]. She and I had a long discussion regards about this. She is not on any anticoagulation therapy. I will follow-up with her after this reassess her symptoms at that time she has been instructed to call the office if she has any issues prior to her next appointment. [facility] #[phone] reviewed and appropriate. Dr. Lomeli has reviewed this note and agrees with this plan of care. This note was dictated using voice recognition software and may contain errors or omissions
[2020-03-20 14:57] VITALS: BP 124/78; PULSE 72; RESP 20; O2SAT 98
== END 2020-03-20 14:58 | disposition home or self-care (01) ==
LOC: SC.PAINP 14:07
PROVIDERS: Visit Provider Clinical Nurse Specialist Family Health
DX: M51.16 Intervertebral disc disorders with radiculopathy, lumbar region (principal); M96.1 Postlaminectomy syndrome, not elsewhere classified; G62.9 Polyneuropathy, unspecified; I10 Essential (primary) hypertension; K21.9 Gastro-esophageal reflux disease without esophagitis; F41.9 Anxiety disorder, unspecified; F32.9 Major depressive disorder, single episode, unspecified; E07.9 Disorder of thyroid, unspecified; Z88.0 Allergy status to penicillin; Z88.1 Allergy status to other antibiotic agents; Z79.899 Other long term (current) drug therapy
CPT/HCPCS: 62370

== ENCOUNTER 2020-03-24 11:41 | Day surgery (SDC) | payer MEDICARE, SELFPAY ==
[2020-03-07 10:41] VITALS: BMI 35.2
[2020-03-24] VITALS (8 sets, daily range): BP systolic 122–136; BP diastolic 80–89; PULSE 70–96; RESP 18–20; TEMP 36.1–36.4; O2SAT 96–98
[2020-03-24 12:30] LABS: Basophils % 0.6 % (0.1-2.0); Eosinophils # 0.2 K/mm3 (0.0-0.4); Hematocrit 44.9 % (37.0-47.0); Hemoglobin 14.6 g/dL (12.2-16.2); Lymphocytes # 2.2 K/mm3 (0.7-4.5); Mean Corpuscular HGB Conc 32.5 g/dL (31.8-35.4); Mean Corpuscular Hemoglobin 31.1 pg (27.0-31.2); Mean Corpuscular Volume 95.8 fl (81-99); Mean Platelet Volume 7.7 fl (7.4-10.4); Monocytes # 0.4 K/mm3 (0.1-1.0); Monocytes % 6.6 % (1.7-9.3); Neutrophils # 3.1 K/mm3 (1.8-7.8); Neutrophils % 51.7 % (37.0-80.0); Platelet Count 177 K/mm3 (142-424); Red Blood Count 4.69 M/mm3 (4.20-5.40); Red Cell Distribution Width 12.6 % (11.5-17.5); White Blood Count 5.9 K/mm3 (4.8-10.8)
[2020-03-24 13:15] LABS: Anion Gap 14.4 mEq/L (5-15); Blood Urea Nitrogen 29 mg/dl (7-17); Calcium 10.6 mg/dl (8.4-10.2); Carbon Dioxide 31 mmol/L (22.0-30.0); Chloride 99 mmol/L (98-107); Creatinine Clearance Estimated 99 mL/min (50-200); Estimated Glomerular Filt Rate 58 ml/min (>60); GFR (African American) 70 ML/MIN (>60); Glucose 96 mg/dl (74-100); Potassium 4.4 mmoL/L (3.5-5.1); Sodium 140 mmol/L (136-145)
[2020-03-24 13:41] LABS: Coronavirus 19 IgG Antibody Negative (Negative); Coronavirus 19 IgM Antibody Negative (Negative)
--- NOTE | 2020-03-24 16:23 | P.PN_ITS ---
[facility] Anesthesia Checklist - Patient Identification Patient Identification: Arm Band - Structural Data Admitted From: Home Planned Operative Procedure/s: neurostimulator trial lead placement under fluoroscopy Consent for Planned Operative Procedure(s) Verified: Yes Verified Documents: Surgical Consent, History and Physical - NPO Status Verified Time NPO: 00:00 - Additional verifications Anesthesia Reactions: No Hx Blood Transfusions: No Blood Transfusion Reaction: No - Airway Assessment C-Spine Mobility Assessed: Yes (mp2) TMJ Mobility Assessed: Yes Dentition: Good Dentition - Neurological Assessment Level of Consciousness: Awake, Alert - Anesthesia Plan Anesthesia Risk discussed: Yes Anesthesia Plan: Verified ASA Class: III Anesthesia Type: MAC [facility] History I have reviewed the patient's past medical history: Yes Medical History: Reports:: Anxiety, Gastroesophageal Reflux Disease(GERD), Hyperlipidemia, Hypertension, Palpitations Denies:: Cancer, Diabetes Mellitus Type 1, Diabetes Mellitus Type 2, MRSA, Seizures *Have you ever received a pneumonia vaccine?: No *Have you received a flu vaccine this season?: No Other Medical History: Reports: Anemia, Hypothyroidism, Thyroid Disease. Denies: Blood Transfusion Reaction Anesthesia experience/problems:: nac Other Surgeries: Yes: Other Amputation: No Fractures: No - *Social History Last grade of school completed: Some college Smoking Status: Never smoker Alcohol Intake: never Alcohol Intake Frequency:: other Substance Use Type: denies use *Occupational Status:: unemployed Housing: house Household Members: spouse *Travel in the last 8 weeks: None Family Hx:: Unable to obtain
--- NOTE | 2020-03-24 16:24 | HMH.OPNOTE ---
Date of procedure: 03/24/20 Pre-op Diagnosis:: Degenerative disc disease of lumbar spine with lumbar radiculopathy symptoms and postlaminectomy syndrome of lumbar spine Post-op Diagnosis:: Same Procedure performed:: Spinal cord stimulator trial with epidural lead placement of 2 leads. Intrathecal catheter dye study and pump study Surgeon:: Bipin Lomeli MD PATIENT ACCOUNTS MANAGER:: Silvino Huff Anesthesia: MAC Estimated blood loss (mL): 1 Clinical Note:: This patient is a pleasant 54-year-old white female who we have been treating for low back pain with lumbar radiculopathy symptoms and postlaminectomy syndrome. She has significant neuropathy in both feet. She does have an intrathecal Dilaudid/bupivacaine pain pump in place. She has been having issues with her pump and we will also do an intrathecal catheter dye study as she has been having some increasing pain in suspect that her pump is not working or functioning properly. Will assess patency of her intrathecal catheter and proper placement. We will also plan on spinal cord stimulator trial with epidural lead placement x2. She is had a successful psychological evaluation. She has failed all previous conservative therapy including injections, oral medications, physical therapy, previous surgery and only gets benefit in her low back from intrathecal therapy. Stimulation will be used to cover her right hip right leg and bilateral foot pain. Operative findings:: None Operative note:: Informed consent was obtained and the risk and benefits of the procedure was explained to the patient. The patient was taken to the operating room she was placed prone on the procedure table. She was prepped and draped in sterile fashion. C-arm fluoroscopy was used to view the lumbar spine. The skin and subcutaneous tissues were anesthetized using lidocaine. I placed a 17-gauge epidural needle was advanced into the L1-L2 interspace. After confirmation of needle placement in the epidural space stimulating lead was inserted and advanced very easily to the T8-T9 vertebral body. Superior aspect of the leads was at the top of T8. A second needle was then inserted and advanced into the L2-L3 interspace. Again after confirmation of needle placement in the epidural space stimulating lead was inserted and advanced to the T8-T9 vertebral body. Superior Aspect of the lead was at the bottom of T8. Both leads were checked in AP and lateral views. The needles were withdrawn. The leads were secured in place. Patient was programmed by the [employer] security representative with good stimulation in all areas of pain. We then did the catheter dye study we did access the reservoir of the pump expected reservoir volume was 18.5 mL we withdrew 17.5 mL which was close to the expected volume. The intrathecal Dilaudid/bupivacaine infusion was then injected back into the pump under the lateral view. We then accessed the catheter access port with a 25-gauge needle. We were unable to withdraw any CSF or medication through the catheter. It was decided to push diet through the Port and catheter which would give the patient a bolus of medication equivalent to 40 to 50% of her daily dose. We did see good dye spread throughout the intrathecal space confirming intrathecal placement of the catheter. The patient received a priming bolus and was then continued at 4 mg/day of intrathecal Dilaudid/bupivacaine. Patient tolerated both procedures well with no complications. We will follow-up with this patient in 3 days for reprogramming we will follow-up in 1 week for lead pull. If patient has any problems or questions she is to call us back in the pain clinic. Condition: stable Disposition: PACU Complications:: None
== END 2020-03-24 18:10 | disposition home or self-care (01) ==
PROVIDERS: Visit Provider Anesthesiology
PROC: (CPT 61070; principal; 2020-03-24 14:00)
DX: M51.16 Intervertebral disc disorders with radiculopathy, lumbar region (principal); M96.1 Postlaminectomy syndrome, not elsewhere classified
CPT/HCPCS: 61070; 63650 ×2; 36415; 80048; 85025; 86328; 96374; C1897; J3370

== ENCOUNTER 2020-03-29 12:15 | Day surgery (SDC) | payer MEDICARE, SELFPAY ==
[2020-03-29 12:33] VITALS: BP 155/93; PULSE 83; RESP 18; TEMP 36.4; O2SAT 99; BMI 33.6
[2020-03-29 12:40] VITALS: BP 142/78; PULSE 88; RESP 18; O2SAT 98
[2020-03-29 12:41] VITALS: BP 148/78; PULSE 88; RESP 18; O2SAT 98
--- NOTE | 2020-03-29 13:04 | P.PCN_ITS ---
- Procedure Date: 03/29/20 Time: 13:04 Anesthesiologist:: Bipin Lomeli MD Complications:: None Pre-procedure Diagnosis:: Postlaminectomy syndrome lumbar spine with lumbar radiculopathy symptoms. Sacroiliitis and trochanteric bursitis Post-procedure Diagnosis:: Same Indications for Procedure:: This patient is a pleasant 54-year-old white female who is currently undergoing a [employer] spinal cord stimulator trial for low back pain and right hip pain. Pain has worsened over the last week during the trial. She is to be reprogrammed today. We did take a look at her leads and her right lead seems to have moved up some. We did pull both leads down to where they were covering T9- T10 and half of T8. We will also do a right SI right trochanteric bursa injection today as patient is tender over the right SI joint. She has a positive Jose's test on right side. She is positive Molly test on the right side. She has positive SI joint compression test on the right side. She also is tender over her right trochanteric bursa. Procedure Details:: Right SI joint injection under fluoroscopy Informed consent was obtained and the risks and benefits of the procedure was going to the patient. Patient was taken to the procedure room. Patient was placed prone on the procedure table. The right hip was prepped using ChloraPrep. The skin and subcutaneous tissues were anesthetized using lidocaine. I placed a 22-gauge spinal needle into the inferior aspect of the right SI joint. Needle placement was confirmed with dye. After this we injected 5 mL bupivacaine 0.25% and Depo-Medrol 40 mg into the right SI joint. The patient tolerated the procedure well with no complication. Trochanteric bursa injection under fluoroscopy informed consent was obtained and the risk and benefits of the procedure was explained to the patient. The patient was taken to the procedure room. The right hip was prepped using ChloraPrep. The skin and subcutaneous tissues were anesthetized using lidocaine. I placed a 22-gauge spinal needle and advanced under fluoroscopic guidance until it contacted the right greater trochanter. Needle placement was confirmed with dye. After this I injected bupivacaine 0.25% 5 mL and Depo-Medrol 40 mg into the right trochanteric bursa. Patient tolerated the procedure well with no complications. Both leads were also pulled down under fluoroscopy to cover all of T9-T8 and half of T10. Leads were secured again with Tegaderm and tape. Patient was programmed again by the [employer] physician relations representative. Plan and Disposition:: We will follow-up with the patient at her lead pulled to see if this adjustment gives her relief along with the injections.
[2020-03-29 13:22] VITALS: BP 98/70; PULSE 79; RESP 20; O2SAT 97
== END 2020-03-29 13:23 | disposition home or self-care (01) ==
LOC: SC.PAIN 12:28
PROVIDERS: Visit Provider Anesthesiology
DX: M54.16 Radiculopathy, lumbar region (principal); M96.1 Postlaminectomy syndrome, not elsewhere classified; M46.1 Sacroiliitis, not elsewhere classified; M70.61 Trochanteric bursitis, right hip; I10 Essential (primary) hypertension; E78.5 Hyperlipidemia, unspecified; K21.9 Gastro-esophageal reflux disease without esophagitis; F41.9 Anxiety disorder, unspecified; F32.9 Major depressive disorder, single episode, unspecified; Z88.0 Allergy status to penicillin; Z88.1 Allergy status to other antibiotic agents; Z79.899 Other long term (current) drug therapy
CPT/HCPCS: 20610; 27096; 77002; G0260; J1030; Q9966

== ENCOUNTER → 2020-03-31 14:18 | Day surgery (SDC) | payer MEDICARE, SELFPAY ==
[2020-03-31 15:42] VITALS: BP 123/89; PULSE 76; RESP 20; TEMP 36.1; O2SAT 98; BMI 33.6
--- NOTE | 2020-03-31 16:45 | P.CONS_ITS ---
[facility] Pain Management SOAP Note Subjective:: This patient is a pleasant 54-year-old white female who we are treating for low back pain with lumbar radiculopathy symptoms and postlaminectomy syndrome. She also has significant neuropathy in both feet. She does have a Dilaudid/bupivacaine pain pump in place. She is doing very well with her pain pump. She is undergoing spinal cord stimulator trial with a [employer] system. She does get significant relief. She had several good days with almost no pain. She also has had some days where she did have some burning in both feet. This was a successful trial. We will pull her leads today. We will see her back in 1 week. We will do a right SI joint injection at that time. She does have ten derness over her right SI joint. She has a positive Jose's test on the right side. She is positive SI joint compression test on the right side. She is positive Molly test on the right side. We will reevaluate her symptoms at that time. Objective:: Alert and oriented x3 no acute distress. Patient does have an antalgic gait. Motor strength of the lower extremities is 5/5. There is no gross sensory deficit. Leads were removed intact there is no signs of infection. Assessment:: Degenerative disease of lumbar spine with lumbar colopathy symptoms and postlaminectomy syndrome lumbar spine Plan:: We will follow-up with her in 1 week. We will reevaluate her symptoms. I do believe this was a successful trial. She will make a decision as to whether to proceed with a permanent implant or not. We will do a right SI joint injection at her visit next week. [facility] History Medical History: Reports:: Anxiety, Gastroesophageal Reflux Disease(GERD), Hyperlipidemia, Hypertension, Palpitations Denies:: Cancer, Diabetes Mellitus Type 1, Diabetes Mellitus Type 2, MRSA, Seizures *Have you ever received a pneumonia vaccine?: Yes *Have you received a flu vaccine this season?: Yes Other Medical History: Reports: Anemia, Hypothyroidism, Thyroid Disease. Denies: Blood Transfusion Reaction Other Surgeries: Yes: Other Amputation: No Fractures: No - *Social History Smoking Status: Never smoker Alcohol Intake: never Alcohol Intake Frequency:: other Substance Use Type: denies use *Occupational Status:: disabled Housing: house Household Members: spouse *Travel in the last 8 weeks: None - Psychiatric History Pschychiatric History:: Reports:: Anxiety Family Hx:: Unable to obtain
== END ==
PROVIDERS: Visit Provider Anesthesiology
DX: M51.16 Intervertebral disc disorders with radiculopathy, lumbar region (principal); M96.1 Postlaminectomy syndrome, not elsewhere classified
CPT/HCPCS: 99212

== ENCOUNTER 2020-04-24 14:22 | Day surgery (SDC) | payer MEDICARE, SELFPAY ==
[2020-04-24 14:53] VITALS: BP 117/77; PULSE 76; TEMP -7.7; TEMP 18; O2SAT 97; BMI 33.3
--- NOTE | 2020-04-24 15:16 | P.PCN_ITS ---
- Procedure Date: 04/24/20 Time: 15:31 Anesthesiologist:: Vania Costa APRN Complications:: None Pre-procedure Diagnosis:: Disc disease lumbar spine with lumbar radiculopathy and postlaminectomy syndrome along with sacroiliitis Post-procedure Diagnosis:: Same Indications for Procedure:: I wanted a hot chocolate with improving cream and the other day patient is a pleasant 54-year-old white female who are treating for low back pain and sacroiliitis. Patient is here today for intrathecal pain pump refill and reprogram along with a bilateral SI joint injection. Patient is also awaiting a neurostimulator implant. Patient had an extremely up a successful neurostimulator trial. She rates her pain today a 6 out of 10. Physical Exam General: Alert and oriented x3, no acute distress, pleasant and cooperative, [on room air] Lungs: Resps E/U, Symmetrical chest expansion, Eyes: PERRL Musculoskeletal: Flexion and extension of lumbar bar spine somewhat guarded secondary to pain, deep tendon reflexes normal, strength in upper and lower extremities [5/5], [abnormal gait noted] Neurological: speech clear, cigarette making machine hopper feeder equal, no gross sensory deficits Procedure Details:: Informed consent was obtained and the risk and benefits of the procedure were explained to the patient. The patient was taken to the procedure room where noninvasive monitoring was placed including noninvasive blood pressure cuff and pulse oximeter. Patient's pump was interrogated. The area over the pump was cleansed with chlorhexidine as a cleansing solution. In sterile fashion the pump was accessed with a 22-gauge needle. Approximately 5.5 mL's were removed of the pump solution and discarded appropriately. The pump was then refilled with 20 mL's of Dilaudid to 20 mg/mL and bupivacaine 15 mg/mL the needle was withdrawn and a bandage was placed over the puncture site. The infusion rate was reprogrammed to 4.4 mg/day. The patient tolerated the procedure well. We then moved onto her SI joint injections. Informed consent was obtained and the risks and benefits of the procedure were explained to the patient. Patient was taken to the procedure room. Patient was placed prone on the procedure table. Both hips were prepped using ChloraPrep as a cleansing solution. The skin and subcutaneous tissues were anesthetized using lidocaine. Using fluoroscopic guidance I placed a 22-gauge spinal needle into the inferior aspect of the [right] SI joint. After this I injected 5 mL bupivacaine 0.25% and Depo-Medrol 40 mg into the [right] SI joint. This was then repeated on the left side. the patient tolerated the procedure well with no complication. Plan and Disposition:: We will follow up with the patient in several weeks reassess her symptoms at that time she has been instructed to call the office if she has any issues prior to her next appointment. Dr. Lomeli has reviewed this note and agrees with this plan of care. This note was dictated using voice recognition software and may contain errors or omissions
[2020-04-24 15:21] VITALS: BP 128/88; PULSE 74; RESP 18
[2020-04-24 15:22] VITALS: BP 132/78; PULSE 84; RESP 18; O2SAT 98
[2020-04-24 15:41] VITALS: BP 132/80; PULSE 74; RESP 18; O2SAT 97
== END 2020-04-24 15:42 | disposition home or self-care (01) ==
LOC: SC.PAINP 14:23
PROVIDERS: Visit Provider Clinical Nurse Specialist Family Health
DX: M51.16 Intervertebral disc disorders with radiculopathy, lumbar region (principal); M96.1 Postlaminectomy syndrome, not elsewhere classified; M46.1 Sacroiliitis, not elsewhere classified; I10 Essential (primary) hypertension; E03.9 Hypothyroidism, unspecified; F41.9 Anxiety disorder, unspecified; F32.9 Major depressive disorder, single episode, unspecified; Z45.1 Encounter for adjustment and management of infusion pump
CPT/HCPCS: 27096; 62370; G0260; J1030; Q9966

== ENCOUNTER 2020-06-05 14:08 | Day surgery (SDC) | payer MEDICARE, SELFPAY ==
[2020-06-05 14:11] VITALS: BP 128/83; PULSE 76; RESP 18; TEMP 36.4; BMI 33.1
[2020-06-05 14:28] VITALS: BP 115/74; PULSE 81; RESP 18; O2SAT 97
[2020-06-05 14:39] VITALS: BP 116/71; PULSE 85; RESP 18; O2SAT 97
--- NOTE | 2020-06-05 14:45 | HMH.PMPROC ---
- Procedure Date: 06/05/20 Time: 14:45 Anesthesiologist:: Vania Costa APRN Complications:: None Pre-procedure Diagnosis:: Degenerative disc disease lumbar spine lumbar radiculopathy postlaminectomy syndrome lumbar spine Post-procedure Diagnosis:: Same Indications for Procedure:: Patient is a pleasant 54-year-old white female who Zentz today for intrathecal pain pump refill and reprogram. Patient overall doing well rating her pain a 5 out of 10. She would like to hold off on her stimulator implant until Covid numbers go down. Patient is currently on a Dilaudid infusion of 4.4 mg/day. She would like a slight increase. [facility] #[id number] reviewed and appropriate. Procedure Details:: informed consent was obtained and the risk and benefits of the procedure were explained to the patient. The patient was taken to the procedure room where noninvasive monitoring was placed including noninvasive blood pressure cuff and pulse oximeter. Patient's pump was interrogated. The area over the pump was cleansed with chlorhexidine as a cleansing solution. In sterile fashion the pump was accessed with a 22-gauge needle. Approximately 5 mL's were removed of the pump solution and discarded appropriately. The pump was then refilled with 20 mL's of Dilaudid 20 mg/mL bupivacaine 15 mg/mL. The needle was withdrawn and a bandage was placed over the puncture site. The infusion rate was reprogrammed to 4.7 mg/day. The patient tolerated the procedure well. Plan and Disposition:: We will see the patient back at her next intrathecal pain pump refill and reprogram she has been instructed to call the office if she has any issues prior to her next appointment. Dr. Lomeli has reviewed this note and agrees with this plan of care. This note was dictated using voice recognition software and may contain errors or omissions
[2020-06-05 14:59] VITALS: BP 116/83; PULSE 76; RESP 18; O2SAT 98
== END 2020-06-05 15:00 | disposition home or self-care (01) ==
LOC: SC.PAINP 14:09
PROVIDERS: Visit Provider Clinical Nurse Specialist Family Health
DX: M51.16 Intervertebral disc disorders with radiculopathy, lumbar region (principal); M96.1 Postlaminectomy syndrome, not elsewhere classified
CPT/HCPCS: 62370

== ENCOUNTER 2020-07-10 13:50 | Day surgery (SDC) | payer MEDICARE, SELFPAY ==
[2020-07-10 13:58] VITALS: BP 129/80; PULSE 70; RESP 18; TEMP 36.6; O2SAT 97; BMI 33.1
[2020-07-10 14:24] VITALS: BP 120/79; PULSE 81; RESP 18; O2SAT 98
[2020-07-10 14:26] VITALS: BP 121/79; PULSE 79; RESP 18; O2SAT 99
--- NOTE | 2020-07-10 14:29 | HMH.PMPROC ---
- Procedure Date: 07/10/20 Time: 14:31 Anesthesiologist:: Vania Costa APRN Complications:: None Pre-procedure Diagnosis:: Degenerative disc disease lumbar spine lumbar postlaminectomy syndrome., Lumbar radiculopathy, back pain Post-procedure Diagnosis:: Same Indications for Procedure:: Is a pleasant 54-year-old white female who presents today for intrathecal pain pump refill and reprogram she rates her pain today 4 out of 10. Patient has good days and bad days. Patient is currently holding off on her neurostimulator due to Covid numbers. Patient is currently on a Dilaudid infusion of 4.7 mg/day. She like a slight increase. She is also on bupivacaine she like an increase in this as well. [facility] #[phone] reviewed and appropriate. Procedure Details:: Informed consent was obtained and the risk and benefits of the procedure were explained to the patient. The patient was taken to the procedure room where noninvasive monitoring was placed including noninvasive blood pressure cuff and pulse oximeter. Patient's pump was interrogated. The area over the pump was cleansed with chlorhexidine as a cleansing solution. In sterile fashion the pump was accessed with a 22-gauge needle. Approximately 7 mL's were removed of the pump solution and discarded appropriately. The pump was then refilled with 20 mL's of Dilaudid 20 mg/mL bupivacaine 15 mg/mL. The needle was withdrawn and a bandage was placed over the puncture site. The infusion rate was reprogrammed to 5 mg/day. The patient tolerated the procedure well. Plan and Disposition:: I will follow up with the patient at her next intrathecal pain pump refill and reprogram. We will increase her bupivacaine concentration to 20 mg/day. Patient's been instructed to call the office if she has any issues prior to her next appointment. Dr. Lomeli has reviewed this note and agrees with this plan of care. This note was dictated using voice recognition software and may contain errors or omissions
[2020-07-10 14:43] VITALS: BP 133/95; PULSE 72; RESP 18; TEMP 36.6; O2SAT 98
== END 2020-07-10 14:40 | disposition home or self-care (01) ==
LOC: SC.PAINP 13:55
PROVIDERS: Visit Provider Clinical Nurse Specialist Family Health
DX: M51.16 Intervertebral disc disorders with radiculopathy, lumbar region (principal); M96.1 Postlaminectomy syndrome, not elsewhere classified; I10 Essential (primary) hypertension; K21.9 Gastro-esophageal reflux disease without esophagitis; E07.9 Disorder of thyroid, unspecified; F41.9 Anxiety disorder, unspecified; F32.9 Major depressive disorder, single episode, unspecified; Z45.1 Encounter for adjustment and management of infusion pump; Z88.0 Allergy status to penicillin; Z88.1 Allergy status to other antibiotic agents
CPT/HCPCS: 62370

== ENCOUNTER 2020-08-14 14:05 | Day surgery (SDC) | payer MEDICARE, SELFPAY ==
[2020-08-14 14:11] VITALS: BP 119/77; PULSE 65; RESP 18; TEMP 36.7; O2SAT 98; BMI 32.9
[2020-08-14 14:22] VITALS: BP 132/85; PULSE 74; RESP 18; O2SAT 98
[2020-08-14 14:36] VITALS: BP 135/78; PULSE 68; RESP 18; O2SAT 99
--- NOTE | 2020-08-14 14:53 | P.PCN_ITS ---
- Procedure Date: 08/14/20 Time: 14:53 Anesthesiologist:: Vania Costa APRN Complications:: None Pre-procedure Diagnosis:: Narrative disc disease lumbar spine lumbar radiculopathy, postlaminectomy syndrome, sacroiliitis Post-procedure Diagnosis:: Same Indications for Procedure:: Patient is a pleasant 54-year-old white female presents today for intrathecal pain pump refill and reprogram she rates her pain today 4-10 overall doing well she is also here for a right SI joint injection. Patient has extreme tenderness over her right SI joint she has a positive Jose's test Molly test distraction test and SI joint compression test on the right side. She is had these before with good relief. [facility] #[id number] reviewed and appropriate. She is on tizanidine 4 mg 1 p.o. 3 times daily and needs a refill. She is also on gabapentin 800 mg from her primary care physician. Patient is currently on Dilaudid and bupivacaine we will increase her bupivacaine today. Procedure Details:: Informed consent was obtained and the risk and benefits of the procedure were explained to the patient. The patient was taken to the procedure room where noninvasive monitoring was placed including noninvasive blood pressure cuff and pulse oximeter. Patient's pump was interrogated. The area over the pump was cleansed with chlorhexidine as a cleansing solution. In sterile fashion the pump was accessed with a 22-gauge needle. Approximately 7 mL's were removed of the pump solution and discarded appropriately. The pump was then refilled with 20 mL's of Dilaudid 20 mg/mL and bupivacaine 20 mg/mL. The needle was withdrawn and a bandage was placed over the puncture site. The infusion rate was reprogrammed to continue at 5 mg/day. The patient tolerated the procedure well. Plan and Disposition:: We will continue her tizanidine. I will follow-up with patient at her next intrathecal pain pump refill and reprogram she has been instructed to call the office if she has any issues prior to her next appointment. Dr. Lomeli has reviewed this note and agrees with this plan of care. This note was dictated using voice recognition software and may contain errors or omissions
[2020-08-14 15:04] VITALS: BP 116/74; PULSE 67; RESP 18; TEMP 36.7; O2SAT 98
== END 2020-08-14 14:55 | disposition home or self-care (01) ==
LOC: SC.PAINP 14:07
PROVIDERS: Visit Provider Clinical Nurse Specialist Family Health
DX: M51.16 Intervertebral disc disorders with radiculopathy, lumbar region (principal); M96.1 Postlaminectomy syndrome, not elsewhere classified; M46.1 Sacroiliitis, not elsewhere classified; I10 Essential (primary) hypertension; K21.9 Gastro-esophageal reflux disease without esophagitis; E07.9 Disorder of thyroid, unspecified; Z88.0 Allergy status to penicillin; Z88.1 Allergy status to other antibiotic agents; Z79.899 Other long term (current) drug therapy
CPT/HCPCS: 95991; J1030; Q9966

== ENCOUNTER 2020-09-18 14:48 | Day surgery (SDC) | payer MEDICARE, SELFPAY ==
[2020-09-18 14:49] VITALS: BP 125/81; PULSE 74; RESP 18; TEMP 36.6; O2SAT 98; BMI 32.3
[2020-09-18 15:28] VITALS: BP 132/85; PULSE 74; RESP 18; O2SAT 98
[2020-09-18 15:29] VITALS: BP 132/74; PULSE 85; RESP 18; O2SAT 98
--- NOTE | 2020-09-18 15:34 | P.PCN_ITS ---
- Procedure Date: 09/18/20 Time: 15:34 Anesthesiologist:: Vania Costa APRN Complications:: None Pre-procedure Diagnosis:: Degenerative disc disease lumbar spine lumbar radiculopathy, back pain, sacroiliitis, postlaminectomy syndrome Post-procedure Diagnosis:: Same Indications for Procedure:: Patient is a very pleasant 54-year-old white female who presents today for intrathecal pain pump refill and reprogram and right SI joint injection. Patient has a positive Jose's test Molly test distraction test and SI joint compression test on the right side. She travels a great distance to come here and we will be doing her SI joint injection along with her pain pump refill today. Patient's rating her pain a 9 out of 10. Patient I discussed getting diagnostic imaging of her right SI and hip. Patient is agreeable. [facility] #[id number] reviewed and appropriate. Patient currently on 5 mg a day of Dilaudid and bupivacaine. Procedure Details:: Informed consent was obtained and the risk and benefits of the procedure were explained to the patient. The patient was taken to the procedure room where noninvasive monitoring was placed including noninvasive blood pressure cuff and pulse oximeter. Patient's pump was interrogated. The area over the pump was cleansed with chlorhexidine as a cleansing solution. In sterile fashion the pump was accessed with a 22-gauge needle. Approximately 7 mL's were removed of the pump solution and discarded appropriately. The pump was then refilled with 20 mL's of Dilaudid 20 mg/mL and bupivacaine 20 mg/mL. The needle was withdrawn and a bandage was placed over the puncture site. The infusion rate was reprogrammed to continue at 5 mg/day. The patient tolerated the procedure well. We then moved onto the SI joint injection. Informed consent was obtained and the risks and benefits of the procedure were explained to the patient. Patient was taken to the procedure room. Patient was placed prone on the procedure table. The [right] hip was prepped using ChloraPrep as a cleansing solution. The skin and subcutaneous tissues were anesthetized using lidocaine. Using fluoroscopic guidance I placed a 22-gauge spinal needle into the inferior aspect of the [right] SI joint. After this I injected 5 mL bupivacaine 0.25% and Depo-Medrol 40 mg into the [right] SI joint. The patient tolerated the procedure well with no complication. Plan and Disposition:: We will send the patient for right hip, right SI, pelvis x-rays to help determine any pathology. I will follow-up with her afterwards reassess her symptoms at that time she has been instructed to call the office if she has any issues prior to her next appointment. Dr. Lomeli has reviewed this note and agrees with this plan of care. This note was dictated using voice recognition software and may contain errors or omissions
[2020-09-18 15:50] VITALS: BP 129/95; PULSE 68; RESP 18; O2SAT 98
== END 2020-09-18 15:51 | disposition home or self-care (01) ==
LOC: SC.PAINP 14:49
PROVIDERS: Visit Provider Clinical Nurse Specialist Family Health
DX: M51.16 Intervertebral disc disorders with radiculopathy, lumbar region (principal); M46.1 Sacroiliitis, not elsewhere classified; M96.1 Postlaminectomy syndrome, not elsewhere classified; E07.9 Disorder of thyroid, unspecified; E78.5 Hyperlipidemia, unspecified; I10 Essential (primary) hypertension; Z88.0 Allergy status to penicillin; Z88.1 Allergy status to other antibiotic agents
CPT/HCPCS: 27096; 95991; G0260; J1040; Q9966

== ENCOUNTER 2020-10-23 14:45 | Day surgery (SDC) | payer MEDICARE, SELFPAY ==
[2020-10-23 14:51] VITALS: BP 100/60; PULSE 65; RESP 18; TEMP 36.6; BMI 31.9
[2020-10-23 14:59] VITALS: BP 101/68; PULSE 75; RESP 18; O2SAT 99
[2020-10-23 15:16] VITALS: BP 105/69; PULSE 71; RESP 18; O2SAT 99
--- NOTE | 2020-10-23 15:23 | [facility].PMPROC ---
- Procedure Date: 10/23/20 Time: 15:23 Anesthesiologist:: Vania Costa APRN Complications:: None Pre-procedure Diagnosis:: Degenerative disc disease lumbar spine lumbar radiculopathy and postlaminectomy syndrome Post-procedure Diagnosis:: Same Indications for Procedure:: Patient is a pleasant 54-year-old white female who presents today for intrathecal pain pump refill and reprogram. Patient overall doing well. She is been using CBD oil she had no idea that it had THC in it. Patient and I discussed THC free options. It was beneficial for her. She does not need any changes today. Procedure Details:: Informed consent was obtained and the risk and benefits of the procedure were explained to the patient. The patient was taken to the procedure room where noninvasive monitoring was placed including noninvasive blood pressure cuff and pulse oximeter. Patient's pump was interrogated. The area over the pump was cleansed with chlorhexidine as a cleansing solution. In sterile fashion the pump was accessed with a 22-gauge needle. Approximately 7 mL's were removed of the pump solution and discarded appropriately. The pump was then refilled with 20 mL's of Dilaudid 20 mg/mL and bupivacaine 20 mg/mL. The needle was withdrawn and a bandage was placed over the puncture site. The infusion rate was reprogrammed to continued at 5 mg/day. The patient tolerated the procedure well. Plan and Disposition:: See the patient back at her next intrathecal pain pump refill and reprogram she is been instructed to call the office if she has any issues prior to her next appointment. Dr. Lomeli has reviewed this note and agrees with this plan of care. This note was dictated using voice recognition software and may contain errors or omissions
[2020-10-23 15:34] VITALS: BP 128/79; PULSE 68; RESP 18; O2SAT 98
== END 2020-10-23 15:35 | disposition home or self-care (01) ==
LOC: SC.PAINP 14:46
PROVIDERS: Visit Provider Clinical Nurse Specialist Family Health
DX: M51.16 Intervertebral disc disorders with radiculopathy, lumbar region (principal); M96.1 Postlaminectomy syndrome, not elsewhere classified; Z45.1 Encounter for adjustment and management of infusion pump; F41.9 Anxiety disorder, unspecified; D64.9 Anemia, unspecified; I10 Essential (primary) hypertension; E78.5 Hyperlipidemia, unspecified; Z88.0 Allergy status to penicillin; Z88.1 Allergy status to other antibiotic agents; F32.9 Major depressive disorder, single episode, unspecified; E07.9 Disorder of thyroid, unspecified
CPT/HCPCS: 95991